=== PATIENT | male | born 1965 | race Caucasian/White ===

== ENCOUNTER → 2023-11-28 09:02 | Outpatient (BNVA) | payer MEDICARE, MEDICAID, SELFPAY | PROVIDERS: PCP Electrodiagnostic Medicine; Referring Provider Electrodiagnostic Medicine; Visit Provider Anesthesiology Pain Medicine | DX: Z82.69 Family history of other diseases of the musculoskeletal system and connective tissue; M54.50 Low back pain, unspecified | CPT/HCPCS: 99204 ==

== ENCOUNTER → 2024-01-15 14:49 | Outpatient (BNVA) | payer MEDICARE, MEDICAID, SELFPAY | PROVIDERS: PCP Electrodiagnostic Medicine; Visit Provider Podiatrist Foot & Ankle Surgery | DX: L60.3 Nail dystrophy (principal); Q82.8 Other specified congenital malformations of skin; G62.9 Polyneuropathy, unspecified; E11.42 Type 2 diabetes mellitus with diabetic polyneuropathy | CPT/HCPCS: 11055; 11721; 99203 ==

== ENCOUNTER 2024-05-29 14:56 | Outpatient (CLI) | payer MEDICARE, MEDICAID, SELFPAY ==
--- NOTE | 2024-05-29 15:02 | CT_ITS ---
WS: [id number] LDCT LUNG CANCER SCREENING HISTORY: NICOTINE DEPENDENCE TECHNIQUE: Axial imaging performed from the apices to 1 cm below the costophrenic angles. Coronal and sagittal reformats are submitted with axial MIP series. All CT scans at [facility] use at least one of these dose optimization techniques: automated exposure control; mA and/or kV adjustment per patient size (includes targeted exams where dose is matched to clinical indication); or iterativ e reconstruction. DLP: 76.91 mGy.cm DIvol: Mean CTDIvol: 1.50 (mGy) COMPARISON: None available. Diagnostic quality: Satisfactory Lungs: No abnormality. Heart: Normal size heart with no pericardial effusion.. Other findings: Small hiatal hernia. No adenopathy. CT/CT lung screening [id number] IMPRESSION: LUNG-RADS: 1-Negative FOLLOW UP: 12 Month: Continue annual screening with LDCT OTHER FINDINGS (S MODIFIER): None.
== END 2024-05-29 14:57 | disposition home or self-care (01) ==
LOC: RAD 14:57
PROVIDERS: PCP Electrodiagnostic Medicine; Visit Provider Electrodiagnostic Medicine
DX: F17.210 Nicotine dependence, cigarettes, uncomplicated (principal); Z12.2 Encounter for screening for malignant neoplasm of respiratory organs
CPT/HCPCS: 71271

== ENCOUNTER 2024-09-24 19:20 | Emergency (ER) | payer MEDICARE, SELFPAY ==
[2024-09-24 19:23] VITALS: BP 135/87; PULSE 100; RESP 17; TEMP 36.6; O2SAT 96; BMI 28.5
--- NOTE | 2024-09-24 19:28 | XRR_ITS ---
PROCEDURE INFORMATION: Exam: XR Chest Exam date and time: 09/24/2024 7:38 PM Age: 59 years old Clinical indication: Cough TECHNIQUE: Imaging protocol: Radiologic exam of the chest. Views: 1 view. COMPARISON: CT lung screening [id number] 05/29/2024 3:06 PM FINDINGS: Lungs: No focal consolidation. Pleural spaces: No evidence of pneumothorax. No evidence of pleural effusion. Heart/Mediastinum: Cardiomediastinal silhouette is within normal limits. Bones/joints: No evidence of acute osseous abnormality. XR/XR chest 1V portable [id number] IMPRESSION: 1. No acute cardiopulmonary abnormality.
--- NOTE | 2024-09-24 19:32 | ED_ITS ---
HPI - URI/Sore Throat 2 General: Chief Complaint: Upper Respiratory Infection Stated Complaint: congestion, cough, n/d Time Seen by Provider: 09/24/24 19:28 Source: patient Mode of arrival: ambulatory Limitations: no limitations History of Present Illness: 59-year-old male who states that over e last 3 days been having cough congestion viral-like symptoms. He states his cough been nonproductive he had some bodyaches and nasal congestion. He does have a history of COPD is a smoker he denies any fevers denies any chest pain. Associated symptoms: Reports chills, nausea and vomiting; Deny abdominal pain, chest pain, diarrhea, fever(s) or headache(s) Related Data Previous Rx's ?Medication ?Instructions ?Recorded diabetic shoes with 3 inserts #1 ea 01/15/24 Allergies Allergy/AdvReac Type Severity Reaction Status Date / Time No Known Allergies Allergy Verified 09/24/24 19:27 Review of Systems 2 Const: Reports: chills; Denies: fever(s), body aches or change in appetite ENMT: Denies: throat pain or dental pain Card: Denies: chest pain Resp: Reports: non-productive cough; Denies: dyspnea GI: Reports: nausea and vomiting; Denies: abdominal pain or diarrhea : Denies: dysuria Musc: Denies: neck pain or back pain Skin/Breast: Denies: rash Neuro: Denies: headache(s) PFSH ED 2 PFSH: Social History Smoking and tobacco/nicotine status: never used tobacco/nicotine Second hand smoke exposure: Yes Alcohol intake: unknown Substance/Drug Use: unknown Physical Exam 2 Const: COMMON NORMALS: no acute distress, patient oriented x3 and healthy appearing HENMT: COMMON NORMALS: normocephalic and atraumatic HEAD & SCALP: n ormocephalic and atraumatic Eye: COMMON NORMALS: conjunctivae normal CONJUNCTIVA: Yes conjunctivae normal Neck/C-Spine: COMMON NORMALS: full ROM and supple Chest: COMMONS NORMALS: normal inspection of the chest Resp: COMMON NORMALS: normal respiratory effort Cardio: COMMON NORMALS: regular rate, regular rhythm and No murmurs present (Cardio) RATE: regular rate RHYTHM: regular rhythm GI: COMMON NORMALS: Normal to inspection, nondistended, normoactive bowel sounds present, Soft to palpation, non-tender and no masses PALPATION: Yes Soft to palpation Extremity: COMMON NORMALS: normal to inspection and full ROM Neuro: COMMON NORMALS: patient oriented x3, moves all extremities and no focal motor deficits Psych: COMMON NORMALS: mental status grossly normal, Normal thought process present and cooperative THOUGHT PROCESS: Normal thought process present Skin: COMMON NORMALS: no rashes or lesions noted and no wounds GENERAL SKIN EXAM: no rashes or lesions noted Course 2 Vital Signs: Vital signs: Vital Signs Temperature 97.9 F 09/24/24 19:23 Pulse Rate 81 09/24/24 20:00 Respiratory Rate 16 09/24/24 20:00 Blood Pressure 106/84 09/24/24 20:00 Pulse Oximetry 98 09/24/24 20:00 Oxygen Delivery Me thod Room Air 09/24/24 19:23 MDM - URI/Sore Throat Medical Decision Making Patient presents here with cough congestion did test positive for influenza he has been in no respiratory distress here his pulse ox is normal he is continue breathing treatments at home did give him Decadron here he is out of the treatment window for Tamiflu follow-up with PCP return if worsening. Medical Records I reviewed the patient's medical records. Lab Data I reviewed the patient's lab results. 09/24/24 20:05 09/24/24 20:05 Radiology Impressions Chest X-Ray 09/24/24 19:28 IMPRESSION: 1. No acute cardiopulmonary abnormality. Laboratory Results WBC 8.99 10^3/uL (3.29-11.43) 09/24/24 20:05 RBC 5.54 10^6/uL (3.85-5.65) 09/24/24 20:05 Hgb 14.90 g/dL (11.27-16.99) 09/24/24 20:05 Hct 45.8 % (37-53) 09/24/24 20:05 MCV 82.7 fl (82-101) 09/24/24 20:05 MCH 26.9 pg (27-33) L 09/24/24 20:05 MCHC 32.5 g/dL (30-55) 09/24/24 20:05 RDW 15.9 % (12.1-15.1) H 09/24/24 20:05 Plt Count 132 10^3/cmm (157-399) L 09/24/24 20:05 MPV 11.4 fL (7.4-10.4) H 09/24/24 20:05 Neut % (Auto) 82.8 % 09/24/24 20:05 Lymph % (Auto) 9.5 % 09/24/24 20:05 [place] % (Auto) 7.1 % 09/24/24 20:05 Eos % (Auto) 0.0 % 09/24/24 20:05 Baso % (Auto) 0.4 % 09/24/24 20:05 Neut # (Auto) 7.44 10^3/uL (1.8-7.7) 09/24/24 20:05 Lymph # (Auto) 0.9 10^3/uL (0.8-4.8) 09/24/24 20:05 [place] # (Auto) 0.6 10^3/uL (0.2-0.9) 09/24/24 20:05 Eos # (Auto) 0.0 10^3/uL (0.0-0.8) 09/24/24 20:05 Baso # (Auto) 0.0 10^3/uL (0.0-0.1) 09/24/24 20:05 Nucleated RBC % (auto) 0 % 09/24/24 20:05 Nucleated RBCs # 0.0 /100WBC 09/24/24 20:05 Sodium 138 mmol/L (136-145) 09/24/24 20:05 Potassium 3.8 mmol/L (3.5-5.1) 09/24/24 20:05 Chloride 100 mmol/L (98-107) 09/24/24 20:05 Carbon Dioxide 20 mmol/L (22-29) L 09/24/24 20:05 Anion Gap 21.8 (5-19) H 09/24/24 20:05 BUN 13 mg/dL (6-20) 09/24/24 20:05 Creatinine 1.1 mg/dL (0.7-1.2) 09/24/24 20:05 GFR Calculation 69.0 mL/min (90-130) L 09/24/24 20:05 Glucose 100 mg/dL (65-115) 09/24/24 20:05 Calculated Osmolality 286 mOsm/kg (285-295) 09/24/24 20:05 Calcium 9.0 mg/dL (8.5-10.5) 09/24/24 20:05 Total Bilirubin 0.4 mg/dL (0.15-1.2) 09/24/24 20:05 AST 23 U/L (0-40) 09/24/24 20:05 ALT 18 U/L (0-41) 09/24/24 20:05 Alkaline Phosphatase 86 U/L (40-130) 09/24/24 20:05 Total Protein 7.3 g/dL (6.6-8.7) 09/24/24 20:05 Albumin 4.5 g/dL (3.5-5.2) 09/24/24 20:05 Globulin 2.8 g/dL (1.3-4.6) 09/24/24 20:05 Lipase 81 U/L (13-60) H 09/24/24 20:05 Influenza A (PCR) Positive (Negative) 09/24/24 20:06 Influenza Type B (PCR) Negative (Negative) 09/24/24 20:06 RSV (PCR) Negative (Negative) 09/24/24 20:06 SARS-CoV-2 (PCR) Negative (Negative) 09/24/24 20:06 All radiology interpretation(s) finalized by discharge Discharge Plan Discharge Patient Disposition: Home Clinical Impression: Influenza A Condition: Stable Prescriptions: No Action (DME) diabetic shoes with 3 inserts See Rx Instructions .Route .MEDSUPPLY Qty: 1 0RF Rx Instructions: As directed to the shoe guolga Discharge Orders: Discharge ED (Routine); Ordered 09/24/24 Ordered By: Julian Wood Referrals: Vinny Martinez DO [Primary Care Provider] - 4-7 days Discharge Diet: Advance as tolerated Discharge Activity: Resume usual activity Patient Instructions: Influenza (ED) Print Language: [place]an Coding Level of Care Code 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
[2024-09-24 20:00] VITALS: BP 106/84; PULSE 81; RESP 16; O2SAT 98
[2024-09-24] MEDS: dexamethasone 10 mg/mL INJ IVP (20:04)
[2024-09-24] MEDS: ondansetron 2 mg/ML SDV 2 mL 4 MG IVP (20:04)
[2024-09-24 20:16] LABS: Basophils % 0.4 %; Hematocrit 45.8 % (37-53); Lymphocytes # 0.9 10^3/uL (0.8-4.8); Lymphocytes % 9.5 %; Mean Corpuscular HGB Conc 32.5 g/dL (30-55); Mean Corpuscular Hemoglobin 26.9 pg (27-33); Mean Corpuscular Volume 82.7 fl (82-101); Mean Platelet Volume 11.4 fL (7.4-10.4); Monocytes # 0.6 10^3/uL (0.2-0.9); Monocytes % 7.1 %; Neutrophils # 7.44 10^3/uL (1.8-7.7); Neutrophils % 82.8 %; Nucleated Red Blood Cells % 0 %; Platelet Count 132 10^3/cmm (157-399); Red Blood Count 5.54 10^6/uL (3.85-5.65); Red Cell Distribution Width 15.9 % (12.1-15.1); White Blood Count 8.99 10^3/uL (3.29-11.43)
[2024-09-24 20:30] LABS: Alanine Aminotransferase 18 U/L (0-41); Albumin Level 4.5 g/dL (3.5-5.2); Alkaline Phosphatase 86 U/L (40-130); Anion Gap 21.8 (5-19); Aspartate Amino Transferase 23 U/L (0-40); Blood Urea Nitrogen 13 mg/dL (6-20); Carbon Dioxide 20 mmol/L (22-29); Chloride 100 mmol/L (98-107); Creatinine Clr Calc Pharmacy 86.3267; Globulin 2.8 g/dL (1.3-4.6); Glucose 100 mg/dL (65-115); Lipase 81 U/L (13-60); Osmolality Calculated 286 mOsm/kg (285-295); Potassium 3.8 mmol/L (3.5-5.1); Sodium 138 mmol/L (136-145); Total Bilirubin 0.4 mg/dL (0.15-1.2); Total Protein 7.3 g/dL (6.6-8.7)
[2024-09-24 20:56] LABS: Influenza A POSITIVE (Negative); Influenza B NEGATIVE (Negative); Respiratory Syncytial Virus Ce NEGATIVE (Negative); SARS-CoV-2 PCR NEGATIVE (Negative)
[2024-09-24 21:19] VITALS: PULSE 80; RESP 20; O2SAT 99
[2024-09-24 21:22] VITALS: PULSE 88; RESP 18; O2SAT 99
== END 2024-09-24 21:42 | disposition home or self-care (01) ==
PROVIDERS: Emergency Provider Emergency Medicine; PCP Electrodiagnostic Medicine
DX: J10.1 Influenza due to other identified influenza virus with other respiratory manifestations (principal); Z11.52 Encounter for screening for COVID-19
CPT/HCPCS: 36415; 71045; 80053; 83690; 85025; 87637; 94640; 96374; 96375; 99284; J1100; J2405